=== PATIENT | male | born 1955 | race Asian ===

== ENCOUNTER 2016-12-07 19:48 | Observation (INO) | payer SELFPAY ==
[~2016-12-07] VITALS: Ht 162.6 cm; Wt 57.0 kg
[2016-12-08] MEDS ORDERED: SOD CHLORIDE 0.9% 500 ML IV STA (00:46)
[2016-12-08 01:07] LABS: ADD SCAN DIFF NO
[2016-12-08 01:09] LABS: ABNORMAL IP MESSAGE 1; HEMATOCRIT 19.9 % (42.0-52.0); MEAN CORPUSCULAR HEMOGLOBIN 15.4 pg (29.0-33.0); MEAN CORPUSCULAR HGB CONC 26.6 g/dl (32.0-37.0); MEAN CORPUSCULAR VOLUME 57.8 fl (82.0-101.0); PLATELET COUNT 308 10^3/UL (140-415); RED BLOOD COUNT 3.44 10^6/ul (4.70-6.10); RED CELL DISTRIBUTION WIDTH 22.9 % (11.5-14.5)
--- NOTE | 2016-12-08 01:20 | RADRPT ---
PROCEDURE: XR Chest. CLINICAL INDICATION: Possible Upper GI Bleed TECHNIQUE: Single frontal view of the chest was obtained. COMPARISON: 08/07/2014 FINDINGS: The cardiomediastinal silhouette is normal size. Pulmonary vasculature is within normal limits. Th e lungs are clear. No signs of pleural fluid or pneumothorax are seen. There is mild aortic calcification. The osseous structures and soft tissues are unremarkable. IMPRESSION: No evidence for active cardiopulmonary disease . Mild aortic calcification. RPTAT: HBST .Cash Jain MD, MD Date Time Electronically viewed and signed by .Cash Jain MD, MD on 12/08/2016 01:19 .T/
[2016-12-08 01:22] LABS: CHLORIDE 99 mmol/L (97-110)
[2016-12-08 01:23] LABS: ALBUMIN 3.6 g/dl (3.3-4.9); SODIUM 138 mmol/L (135-144)
[2016-12-08 01:24] LABS: POTASSIUM 3.3 mmol/L (3.5-5.1)
[2016-12-08 01:26] LABS: ALANINE AMINOTRANSFERASE 41 IU/L (13-69); ALBUMIN/GLOBULIN RATIO 0.92; ALKALINE PHOSPHATASE 86 IU/L (42-121); ANION GAP 13 (8-16); ASPARTATE AMINO TRANSFERASE 45 IU/L (15-46); BILIRUBIN,INDIRECT 0.3 mg/dl (0-1.1); BILIRUBIN,TOTAL 0.3 mg/dl (0.2-1.3); BLOOD UREA NITROGEN 15 mg/dl (7-20); CARBON DIOXIDE 29 mmol/L (21-31); CREATININE 0.72 mg/dl (0.61-1.24); GLUCOSE 86 mg/dl (70-220); TOTAL PROTEIN 7.5 g/dl (6.1-8.1)
[2016-12-08 01:36] LABS: INR 1.22; PROTIME 15.5 Sec (12.2-14.2); PT RATIO 1.2
[2016-12-08 01:37] LABS: PARTIAL THROMBOPLASTIN TIME 30.8 Sec (25.0-35.0)
[2016-12-08 01:39] LABS: TROPONIN-I < 0.012 ng/ml (0.00-0.12)
[2016-12-08] MEDS ORDERED: SOD CHLORIDE 0.9% 250 ML IV ONE (02:04)
[2016-12-08 02:27] LABS: ANISOCYTOSIS 3+; EOSINOPHILS # 0.2 10^3/ul (0.0-0.5); LYMPHOCYTES # 2.2 10^3/ul (0.8-2.9); MONOCYTE # 0.4 10^3/ul (0.3-0.9); NEUTROPHIL # 1.2 10^3/ul (1.6-7.5); POIKILOCYTOSIS 2+
[2016-12-08 02:28] LABS: HYPOCHROMASIA 3+; MICROCYTOSIS 1+; TEAR DROP CELLS 1+
[2016-12-08 02:29] LABS: BURR CELLS 1+; OVALOCYTES 2+; STOMATOCYTES 1+
[2016-12-08 02:30] LABS: ACANTHOCYTES FEW; PLATELET ESTIMATE PLT APPEAR ADEQUATE
[2016-12-08] MEDS ORDERED: ONDANSETRON 4 MG INJ IV PRN ×2 (03:00)
[2016-12-08] MEDS ORDERED: ACETAMINOPHEN 325 MG TAB PO PRN ×2 (03:00)
--- NOTE | 2016-12-08 04:24 | ERA ---
ER Documentation Chief Complaint Date/Time DATE: 12/08/16 TIME: 04:16 Chief Complaint Low hgb HPI 61-year-old male with a history of hypertension sent by his primary care physician for a low hemoglobin on blood work. Patient states that he has had increasing fatigue, dizziness, with near syncopal episodes for the past several months that has been getting worse. He denies any associated chest pain but has had palpitations. He denies any hematemesis, nausea, vomiting, hematochezia , or melena. He denies any active bleeding. He has never had a blood transfusion in the past and has never been diagnosed with anemia. ROS All systems reviewed and are negative except as per history of present illness. Medications Home Meds Unable to Obtain Active Prescriptions or Reported Meds Allergies Allergies: Coded Allergies: No Known Allergy (Unverified , 08/07/14) PMhx/Soc History of Surgery: No Anesthesia Reaction: No Hx Neurological Disorder: No Hx Respiratory Disorders: No Hx Cardiac Disorders: Yes (HTN) Hx Psychiatric Problems: No Hx Miscellaneous Medical Probl: No Hx Alcohol Use: Yes (1-2 BEERS/DAY) Hx Substance Use: No Hx Tobacco Use: Yes Smoking Status: Current every day smoker FmHx Family History: No diabetes Physical Exam Vitals Vital Signs Date Time Temp Pulse Resp B/P Pulse Ox O2 Delivery O2 Flow Rate FiO2 12/08/16 04:52 96.5 66 16 153/86 100 Nasal Cannula 2.0 12/08/16 03:10 96.2 80 16 155/89 100 Nasal Cannula 3.0 12/08/16 01:56 67 18 156/94 99 12/08/16 00:39 69 18 161/100 100 Nasal Cannula 3.0 12/07/16 20:45 97.2 63 20 137/67 100 Physical Exam Const: No distress, nontoxic, very pale Head: Atraumatic Eyes: Pale conjunctiva, no scleral icterus ENT: Normal External Ears, Nose and Mouth. No oropharyngeal bleeding Neck: Full range of motion.No meningismus. Resp: Clear to auscultation bilaterally Cardio: Regular rate and occasionally irregular rhythm, no murmurs Abd: Soft, non tender, non distended. Normal bowel sounds Skin: No petechiae or rashes, no jaundice Rectal: Normal tone, No mass, Positive control Stool: Brown Guaiac: Negative Back: No midline or flank tenderness Ext: No cyanosis, or edema Neur: Awake and alert Psych: Normal Mood and Affect Result Diagram: 12/08/16 0045 12/08/16 0045 Results 24 hrs Laboratory Tests Test 12/08/16 00:45 White Blood Count 4.010^3/ul Red Blood Count 3.4410^6/ul Hemoglobin 5.3g/dl Hematocrit 19.9% Mean Corpuscular Volume 57.8fl Mean Corpuscular Hemoglobin 15.4pg Mean Corpuscular Hemoglobin Concent 26.6g/dl Red Cell Distribution Width 22.9% Platelet Count 41172^3/UL Mean Platelet Volume fl Neutrophils % 30.0% Lymphocytes % 56.0% Monocytes % 9.0% Eosinophils % 4.0% Basophils % 1.0% Neutrophils # 1.210^3/ul Lymphocytes # 2.210^3/ul Monocytes # 0.410^3/ul Eosinophils # 0.210^3/ul Basophils # 0.010^3/ul Differential Comment Platelet Estimate PLT APPEAR ADEQUATE Large Platelets FEW Hypochromasia 3+ Poikilocytosis 2+ Anisocytosis 3+ Microcytosis 1+ Macrocytosis 1+ Tear Drop Cells 1+ Ovalocytes 2+ Stomatocytes 1+ Acanthocytes FEW Prothrombin Time 15.5Sec Prothrombin Time Ratio 1.2 INR International Normalized Ratio 1.22 Activated Partial Thromboplast Time 30.8Sec Sodium Level 138mmol/L Potassium Level 3.3mmol/L Chloride Level 99mmol/L Carbon Dioxide Level 29mmol/L Anion Gap 13 Blood Urea Nitrogen 15mg/dl Creatinine 0.72mg/dl Glucose Level 86mg/dl Calcium Level 8.0mg/dl Iron Level 20ug/dl Total Iron Binding Capacity Pending Percent Iron Saturation Pending Total Bilirubin 0.3mg/dl Direct Bilirubin 0.00mg/dl Indirect Bilirubin 0.3mg/dl Aspartate Amino Transf (AST/SGOT) 45IU/L Alanine Aminotransferase (ALT/SGPT) 41IU/L Alkaline Phosphatase 86IU/L Troponin I < 0.012ng/ml Total Protein 7.5g/dl Albumin 3.6g/dl Globulin 3.90g/dl Albumin/Globulin Ratio 0.92 Lipase 313U/L Current Medications Medications (Trade) Dose Ordered Sig/Maria Teresa Route PRN Reason Start Time Stop Time Status Last Admin Dose Admin Sodium Chloride 500 ml @ 500 mls/hr Q1H STAT IV 12/08/16 00:46 12/08/16 01:45 DC 12/08/16 01:06 Sodium Chloride (NS) 250 ml @ 0 mls/hr Q0M ONCE IV 12/08/16 02:04 12/08/16 02:05 DC 12/08/16 02:04 Ondansetron HCl (Zofran Inj) 4 mg BRIDGE ORDER PRN IV NAUSEA AND/OR VOMITING 12/08/16 03:00 12/09/16 02:59 Acetaminophen (Tylenol Tab) 650 mg ER BRIDGE PRN PO MILD PAIN/FEVER 12/08/16 03:00 12/09/16 02:59 Ondansetron HCl (Zofran Inj) 4 mg BRIDGE ORDER PRN IV NAUSEA AND/OR VOMITING 12/08/16 03:00 12/09/16 02:59 Acetaminophen (Tylenol Tab) 650 mg ER BRIDGE PRN PO MILD PAIN/FEVER 12/08/16 03:00 12/09/16 02:59 IV Flush (NS 3 ml) 3 ml PER PROTOCOL IV 12/08/16 05:00 Metoclopramide HCl (Reglan) 10 mg Q6H PRN IV NAUSEA AND/OR VOMITING 12/08/16 05:00 Morphine Sulfate (morphine) 2 mg Q4H PRN IV SEVERE PAIN LEVEL 7-10 12/08/16 05:00 Famotidine (Pepcid Iv) 20 mg Q12 IV 12/08/16 09:00 Procedures/MDM EKG: Rate/Rhythm: Normal Sinus Rhythm at 71 bpm with PAC QRS, ST, T-waves: QTC 493, LVH, no changes consistent w/ acute ischemia Impression: No evidence of ischemia or arrhythmia Labs show a hemoglobin of 5.3, mild hypokalemia Chest x-ray shows no acute disease Patient is presenting with symptomatic severe anemia. Vitals are stable and he is afebrile. There is no evidence of cardiac ischemia. There is no evidence of acute GI bleed or other acute bleeding. Patient was consented for blood transfusion. 2 units of packed red blood cells were ordered and transfusion started. The patient will be admitted for further workup and management of his anemia. Critical Care Time: 35 minutes Treatments/Evaluations: Close monitoring and treatment of unstable vital signs, cardiorespiratory, and neurologic status, while maintaining tight balance of fluid, respiratory, and cardiac interventions. This time includes discussing the case with the patient and the patients family. This time does not include all procedures stated elsewhere in this record. This time also includes reviewing old records, labs and radiological studies. This time includes examining and re-examining the patient. Additionally, this time also includes arranging care with admitting and consulting physicians. Accepting Care Team: Current data and ongoing care discussed. Time: Time of admission Primary Provider: Gavin Consulting: none Outstanding Data: none Departure Diagnosis: Primary Impression: Severe anemia Additional Impression: Hypokalemia Condition: Serious BRODERICK GUIDRY MD Dec 08, 2016 04:24
--- NOTE | 2016-12-08 04:39 | HP ---
Date/Time of Note Date/Time of Note DATE: 12/08/16 TIME: 04:39 Assessment/Plan VTE Prophylaxis VTE Prophylaxis Intervention: contraindicated (Bleeding Risk. Very anemic. No source.) Lines/Catheters IV Catheter Type (from Nrs): Saline Lock Assessment/Plan Assessment/Plan 1) Anemia - microcytic, hypochromic, no obvious source. Consider dietary deficiency, slow GI loss, Hematopoietic Disorder? (patient has never had a Colonoscopy) - Admit to Med-Surg - Transfuse 2 uPRBCs as ordered by the ER physician - NPO for now pending possible procedure. - Iron Studies, Reticulocyte Count - CONSULT: GI - Dr. Enrique HPI/ROS Admit Date/Time Admit Date/Time 12/08/16 0250 Hx of Present Illness Chief Complaint Low hgb HPI 61-year-old male with a history of hypertension sent by his primary care physician for a low hemoglobin on blood work. Patient states that he has had increasing fatigue, dizziness, with near syncopal episodes for the past several months that has been getting worse. He denies any associated chest pain but has had palpitations. He denies any hematemesis, nausea, vomiting, hematochezia , or melena. He denies any active bleeding. He has never had a blood transfusion and has never been diagnosed with anemia. Right now, he indicates that he feels a bit better, but still feels a little short of breath. Patient has never had a Colonoscopy. ROS General: Admits: General Fatigue Denies: Fever, Chills, Poor Appetite, Abnormal Weight Loss, Generalized Body Aches Eyes: Admits: Denies: Blurry Vision, Double Vision, Yellow Eyes HENT: Admits: Denies: Sinus Pain/Pressure, Ear Pain/Pressure, Runny/Stuffy Nose, Sore Throat Cardiovascular: Admits: Denies: Chest Pain, Palpitations, Leg Swelling Pulmonary: Admits: Shortness of Breath Denies: Cough, Wheeze Gastrointestinal: Admits: Denies: Abdominal Pain, Nausea, Vomiting, Diarrhea, Blood in Stool, Black-Colored Stool Urogenital: Admits: Denies: Burning with Urination, Urinary Frequency, Blood in Urine Musculoskeletal: Admits: Denies: Joint Pain, Joint Swelling, Muscle Pain Neurological: Admits: Denies: Headache, Dizziness, Numbness, Tingling, Shooting Pains Integumentary: Admits: Denies: Rash, Itch Endocrine: Admits: Denies: Excessive Thirst, Excessive Hunger, Intolerant to Cold , Intolerant to Heat Hematologic: Admits Denies: Easy Bruising, Spontaneous Nose Bleeds, Bleeding Gums PMH/Family/Social Past Medical History Medical History: hypertension Family History Significant Family History: other (No Diabetes) Social History Alcohol Use: other (1 to 2 Beers per day) Smoking Status: Current every day smoker Exam/Review of Systems Vital Signs Vitals Vital Signs Date Time Temp Pulse Resp B/P Pulse Ox O2 Delivery O2 Flow Rate FiO2 12/08/16 03:10 96.2 80 16 155/89 100 Nasal Cannula 3.0 Exam Exam General: Alert and Oriented, in no acute distress Eyes: Sclera White, Conjunctiva Pale, EOMI HENT: Normocephalic/Atraumatic, External Ears/Nose Normal, Moist Mucus Membranes Neck: Supple, Trachea Midline Cardiovascular: Normal Rate, Normal Rhythm with frequent extra beat felt easily through the chest wall while auscultating. (Patient indicates he can feel those stronger heart beats) Normal S1 and S2, No Murmur, No Extra Sounds Pulmonary: Clear to Auscultation Bilaterally, Normal Respiratory Effort, No Rales, Rhonchi or Wheezes Gastrointestinal: Normoactive Bowel Sounds, Soft, Non-Tender/Non-Distended, No Hepatosplenomegaly Appreciated, No Pulsatile Masses (Rectap done by ER Physician - Brown stool. Occult Blood: NEGATIVE) Urogenital: Deferred Musculoskeletal: Normal Muscle Bulk and Tone Neurological: CN II - XII Grossly Intact, Non-Focal, Speech Normal Integumentary: Pale, no bruising. Normal Moisture and Temperature, Good Turgor , No Jaundice, No Rash Lymphatic: No Cervical Lymphadenopathy Psychiatric: Appropriate Mood and Affect, Good Eye Contact Labs Result Diagram: 12/08/164412/08/1644 Medications Medications Home Meds Unable to Obtain Active Prescriptions or Reported Meds Current Medications Home Meds Unable to Obtain Active Prescriptions or Reported Meds Medications (Trade) Dose Ordered Sig/Maria Teresa Route PRN Reason Start Time Stop Time Status Last Admin Dose Admin Sodium Chloride 500 ml @ 500 mls/hr Q1H STAT IV 12/08/16 00:46 12/08/16 01:45 DC 12/08/16 01:06 Sodium Chloride (NS) 250 ml @ 0 mls/hr Q0M ONCE IV 12/08/16 02:04 12/08/16 02:05 DC 12/08/16 02:04 Ondansetron HCl (Zofran Inj) 4 mg BRIDGE ORDER PRN IV NAUSEA AND/OR VOMITING 12/08/16 03:00 12/09/16 02:59 Acetaminophen (Tylenol Tab) 650 mg ER BRIDGE PRN PO MILD PAIN/FEVER 12/08/16 03:00 12/09/16 02:59 Ondansetron HCl (Zofran Inj) 4 mg BRIDGE ORDER PRN IV NAUSEA AND/OR VOMITING 12/08/16 03:00 12/09/16 02:59 Acetaminophen (Tylenol Tab) 650 mg ER BRIDGE PRN PO MILD PAIN/FEVER 12/08/16 03:00 12/09/16 02:59 Procedures Procedures Laboratory Tests Test 12/08/16 00:45 White Blood Count 4.010^3/ul Red Blood Count 3.4410^6/ul Hemoglobin 5.3g/dl Hematocrit 19.9% Mean Corpuscular Volume 57.8fl Mean Corpuscular Hemoglobin 15.4pg Mean Corpuscular Hemoglobin Concent 26.6g/dl Red Cell Distribution Width 22.9% Platelet Count 62984^3/UL Mean Platelet Volume fl Neutrophils % 30.0% Lymphocytes % 56.0% Monocytes % 9.0% Eosinophils % 4.0% Basophils % 1.0% Neutrophils # 1.210^3/ul Lymphocytes # 2.210^3/ul Monocytes # 0.410^3/ul Eosinophils # 0.210^3/ul Basophils # 0.010^3/ul Differential Comment Platelet Estimate PLT APPEAR ADEQUATE Large Platelets FEW Hypochromasia 3+ Poikilocytosis 2+ Anisocytosis 3+ Microcytosis 1+ Macrocytosis 1+ Tear Drop Cells 1+ Ovalocytes 2+ Stomatocytes 1+ Acanthocytes FEW Prothrombin Time 15.5Sec Prothrombin Time Ratio 1.2 INR International Normalized Ratio 1.22 Activated Partial Thromboplast Time 30.8Sec Sodium Level 138mmol/L Potassium Level 3.3mmol/L Chloride Level 99mmol/L Carbon Dioxide Level 29mmol/L Anion Gap 13 Blood Urea Nitrogen 15mg/dl Creatinine 0.72mg/dl Glucose Level 86mg/dl Calcium Level 8.0mg/dl Total Bilirubin 0.3mg/dl Direct Bilirubin 0.00mg/dl Indirect Bilirubin 0.3mg/dl Aspartate Amino Transf (AST/SGOT) 45IU/L Alanine Aminotransferase (ALT/SGPT) 41IU/L Alkaline Phosphatase 86IU/L Troponin I < 0.012ng/ml Total Protein 7.5g/dl Albumin 3.6g/dl Globulin 3.90g/dl Albumin/Globulin Ratio 0.92 Lipase 313U/L Procedures/MDM EKG: Interpreted by ER Physician Rate/Rhythm: Normal Sinus Rhythm at 71 bpm with PAC QRS, ST, T-waves: QTC 493, LVH, no changes consistent w/ acute ischemia Impression: No evidence of ischemia or arrhythmia CARON AGUILAR DO Dec 08, 2016 04:39 Urine, Nocturia Musculoskeletal: Admits: Denies: Joint Pain, Joint Swelling, Muscle Pain Neurological: Admits: Denies: Headache, Dizziness, Numbness, Tingling, Shooting Pains Integumentary: Admits: Denies: Rash, Itch, Yellow Skin Endocrine: Admits: Denies: Excessive Thirst, Excessive Hunger, Intolerant to Cold , Intolerant to Heat Psychiatric: Admits: Denies: Anxiety, Depression PMH/Family/Social Social History Smoking Status: Current every day smoker Exam/Review of Systems Vital Signs Vitals Vital Signs Date Time Temp Pulse Resp B/P Pulse Ox O2 Delivery O2 Flow Rate FiO2 12/08/16 03:10 96.2 80 16 155/89 100 Nasal Cannula 3.0 Labs Result Diagram: 12/08/165 12/08/16 0045 CARON AGUILAR DO Dec 08, 2016 04:39
[2016-12-08] MEDS ORDERED: morphine 2 MG INJ IV PRN (05:00)
[2016-12-08] MEDS ORDERED: METOCLOPRAMIDE 10 MG INJ IV PRN (05:00)
[2016-12-08] MEDS ORDERED: NACL 0.9% 3 ML SYG IV SCH (05:00)
[2016-12-08 05:24] LABS: NUCLEATED RED BLOOD CELLS% 0.5 /100WBC (0.0-0.0)
[2016-12-08 05:31] LABS: IRON 20 ug/dl (35-150)
[2016-12-08 06:03] LABS: TOTAL IRON BINDING CAPACITY 465 ug/dl (241-421)
[2016-12-08 06:18] LABS: RETICULOCYTE COUNT % 1.2 % (0.5-1.5)
[2016-12-08 06:55] VITALS: PULSE 80; TEMP 97.8
[2016-12-08 07:30] VITALS: Ht 162.6 cm; Wt 57.0 kg
[2016-12-08 08:18] VITALS: BP 163/98; RESP 20
[2016-12-08] MEDS: FAMOTIDINE 20 MG INJ IV SCH ×2 (09:44→20:51)
--- NOTE | 2016-12-08 14:15 | CONS ---
Date/Time of Note Date/Time of Note DATE: 12/08/16 TIME: 14:09 Assessment/Plan Assessment/Plan Additional Assessment/Plan Acute anemia Evaluate GI bleed versus chronic iron deficiency vs other etiology Stool OB, if positive strongly recommend EGD Monitor H&H every 8 hours, transfuse 2 units for hemoglobin less than 7.5 Iron profile Monitor labs CT abdomen Continue PPI twice daily EGD if clinically indicated, pt advised of R/B/A to procedure and declines providing informed consent to proceed Hypertension Management per Primary Continue home medication Further recommendations depend on clinical course Patient seen in collaboration with Dr. Enrique Consultation Date/Type/Reason Admit Date/Time 12/08/16 0250 Hx of Present Illness Mr.Khek Walker is a 61-year-old male that presented to ED for further evaluation of weakness. Patient states he has been feeling very weak and tired for a few weeks. Patient denies fever, chills, nausea, vomiting, melena stools , bright red blood per rectum, sick contacts, travel outside the [place], previous episode, and chronic NSAID use. Patient states he has a past medical history for hypertension only. Patient declines endoscopic evaluation for anemia. Advised patient that endoscopy would help determine whether or not if he is actively bleeding and if there is a GI source for his anemia. Patient states he understands the risks but declines procedure. Patient does not want EGD and would prefer to start eating. Past Medical History Medical History: hypertension Social History Alcohol Use: other (1 to 2 Beers per day) Smoking Status: Current every day smoker Exam/Review of Systems Vital Signs Vitals Vital Signs Date Time Temp Pulse Resp B/P Pulse Ox O2 Delivery O2 Flow Rate FiO2 12/08/16 08:18 98.4 69 20 163/98 100 12/08/16 06:55 Room Air 12/08/16 04:52 2.0 Intake and Output 12/07/16 12/07/16 12/08/16 15:00 23:00 07:00 Intake Total 700 ml Balance 700 ml Exam Constitutional: alert, oriented, well developed Psych: nl mood/affect Head: normocephalic Eyes: EOMI, nl conjunctiva, nl lids ENMT: nl external ears & nose, nl lips & teeth, nl nasal mucosa & septum Respiratory: clear to auscultation, normal air movement Cardiovascular: regular rate and rhythm Gastrointestinal: soft, non-tender Musculoskeletal: nl extremities to inspection Neurological: SCHEDULE SUPERVISOR II-XII intact Results Result Diagram: 12/08/165 12/08/1644 Results 24 hrs Laboratory Tests Test 12/08/16 00:45 White Blood Count 4.0 L Red Blood Count 3.44 L Hemoglobin 5.3 *L Hematocrit 19.9 L Mean Corpuscular Volume 57.8 L Mean Corpuscular Hemoglobin 15.4 L Mean Corpuscular Hemoglobin Concent 26.6 L Red Cell Distribution Width 22.9 H Platelet Count 308 Mean Platelet Volume Neutrophils % 30.0 L Lymphocytes % 56.0 H Monocytes % 9.0 Eosinophils % 4.0 Basophils % 1.0 Nucleated Red Blood Cells % 0.5 H Neutrophils # 1.2 L Lymphocytes # 2.2 Monocytes # 0.4 Eosinophils # 0.2 Basophils # 0.0 Nucleated Red Blood Cells # 0.0 Differential Comment Platelet Estimate PLT APPEAR ADEQUATE Large Platelets FEW Hypochromasia 3+ Poikilocytosis 2+ Anisocytosis 3+ Microcytosis 1+ Macrocytosis 1+ Tear Drop Cells 1+ Ovalocytes 2+ Stomatocytes 1+ Acanthocytes FEW Absolute Reticulocyte Count 0.041 Percent Reticulocyte Count 1.2 Prothrombin Time 15.5 H Prothrombin Time Ratio 1.2 INR International Normalized Ratio 1.22 Activated Partial Thromboplast Time 30.8 Sodium Level 138 Potassium Level 3.3 L Chloride Level 99 Carbon Dioxide Level 29 Anion Gap 13 Blood Urea Nitrogen 15 Creatinine 0.72 Glucose Level 86 Calcium Level 8.0 L Iron Level 20 L Total Iron Binding Capacity 465 H Percent Iron Saturation 4 L Total Bilirubin 0.3 Direct Bilirubin 0.00 Indirect Bilirubin 0.3 Aspartate Amino Transf (AST/SGOT) 45 Alanine Aminotransferase (ALT/SGPT) 41 Alkaline Phosphatase 86 Troponin I < 0.012 Total Protein 7.5 Albumin 3.6 Globulin 3.90 H Albumin/Globulin Ratio 0.92 Lipase 313 H Medications Medications Current Medications Metoclopramide HCl (Reglan) 10 mg Q6H PRN IV NAUSEA AND/OR VOMITING; Start at 05:00 Morphine Sulfate (morphine) 2 mg Q4H PRN IV SEVERE PAIN LEVEL 7-10; Start 12/08 at 05:00 Famotidine (Pepcid Iv) 20 mg Q12 IV Last administered on 12/08/16t 09:44; Admin Dose 20 MG; Start 12/08/16 at 09:00 Influenza Virus Vaccine (Fluzone) 0.5 ml ONCE ONCE IM* ; Start 12/08/16 at 17:00 ; Stop 12/08/16 at 17:01 DERIAN ONEIL Dec 08, 2016 14:15
[2016-12-08 14:45] LABS: HEMATOCRIT 27.5 % (42.0-52.0); HEMOGLOBIN 7.9 g/dl (14.0-18.0)
[2016-12-08] MEDS ORDERED: INFLUENZA VIRUS VACCINE 0.5 ML SYG IM* ONE (17:00)
[2016-12-08 19:29] VITALS: BP 171/79; RESP 18
[2016-12-09 05:29] LABS: ADD SCAN DIFF NO
[2016-12-09 05:46] LABS: ABNORMAL IP MESSAGE 1; BASOPHILS % 0.5 % (0.0-2.0); EOSINOPHILS # 0.1 10^3/ul (0.0-0.5); EOSINOPHILS % 2.8 % (0.0-7.0); HEMATOCRIT 27.3 % (42.0-52.0); HEMOGLOBIN 7.9 g/dl (14.0-18.0); LYMPHOCYTES # 1.7 10^3/ul (0.8-2.9); LYMPHOCYTES % 37.9 % (15.0-51.0); MEAN CORPUSCULAR HEMOGLOBIN 18.2 pg (29.0-33.0); MEAN CORPUSCULAR HGB CONC 28.9 g/dl (32.0-37.0); MEAN CORPUSCULAR VOLUME 62.8 fl (82.0-101.0); MONOCYTE # 0.3 10^3/ul (0.3-0.9); MONOCYTES % 7.6 % (0.0-11.0); NEUTROPHIL # 2.2 10^3/ul (1.6-7.5); PLATELET COUNT 264 10^3/UL (140-415); WHITE BLOOD COUNT 4.4 10^3/ul (4.8-10.8)
[2016-12-09 06:10] LABS: CREATININE 0.8 mg/dl (0.61-1.24)
[2016-12-09 06:11] LABS: CALCIUM 8.2 mg/dl (8.4-10.2)
[2016-12-09 06:18] LABS: RED BLOOD COUNT 4.35 10^6/ul (4.70-6.10); RED CELL DISTRIBUTION WIDTH 29.4 % (11.5-14.5)
[2016-12-09 06:38] LABS: POTASSIUM 2.9 mmol/L (3.5-5.1)
[2016-12-09 07:00] VITALS: BP 141/78; RESP 20
[2016-12-09] MEDS: FAMOTIDINE 20 MG INJ IV SCH ×2 (09:02→21:32)
[2016-12-09 10:08] LABS: SPHEROCYTES 1+; TARGET CELLS 1+
--- NOTE | 2016-12-09 10:35 | CONS ---
Date/Time of Note Date/Time of Note DATE: 12/09/16 TIME: 10:32 Assessment/Plan Assessment/Plan Chief Complaint/Hosp Course Mr.Khek Walker is a 61-year-old male that presented to ED for further evaluation of weakness. Patient states he has been feeling very weak and tired for a few weeks. Patient denies fever, chills, nausea, vomiting, melena stools , bright red blood per rectum, sick contacts, travel outside the [place], previous episode, and chronic NSAID use. Patient states he has a past medical history for hypertension only. Patient declines endoscopic evaluation for anemia. Advised patient that endoscopy would help determine whether or not if he is actively bleeding and if there is a GI source for his anemia. Patient states he understands the risks but declines procedure. Patient does not want EGD and would prefer to start eating. Problems: Additional Assessment/Plan Acute anemia Evaluate GI bleed versus chronic iron deficiency vs other etiology Stool OB, if positive strongly recommend EGD Monitor H&H every 8 hours, transfuse 2 units for hemoglobin less than 7.5 Iron profile Monitor labs Continue PPI twice daily EGD if clinically indicated, pt advised of R/B/A to procedure and declines providing informed consent to proceed. Pt understands risks and continues to refuse procedure. GI sign off Hypertension Management per Primary Continue home medication Further recommendations depend on clinical course Patient seen in collaboration with Dr. Enrique Consultation Date/Type/Reason Admit Date/Time Dec 08, 2016 at 02:51 Initial Consult Date Reason for Consultation Anemia 24 HR Interval Summary Free Text/Dictation Hemoglobin stable Patient continues to refuse EGD GI sign off Exam/Review of Systems Vital Signs Vitals Vital Signs Date Time Temp Pulse Resp B/P Pulse Ox O2 Delivery O2 Flow Rate FiO2 12/09/16 07:00 98.0 63 20 141/78 98 12/08/16 06:55 Room Air 12/08/16 04:52 2.0 Intake and Output 12/08/16 12/08/16 12/09/16 15:00 23:00 07:00 Intake Total 1780 ml 400 ml Balance 1780 ml 400 ml Exam Constitutional: alert, oriented, well developed Psych: nl mood/affect Head: normocephalic Eyes: EOMI, nl conjunctiva, nl lids ENMT: nl external ears & nose, nl lips & teeth, nl nasal mucosa & septum Respiratory: clear to auscultation, normal air movement Cardiovascular: regular rate and rhythm Gastrointestinal: soft, non-tender Musculoskeletal: nl extremities to inspection Neurological: FINANCE ADMINISTRATOR II-XII intact Results Result Diagram: 12/09/16 0500 12/09/16 0500 Results 24 hrs Laboratory Tests Test 12/08/16 14:25 12/09/16 05:00 Hemoglobin 7.9 #L 7.9 L Hematocrit 27.5 #L 27.3 L White Blood Count 4.4 L Red Blood Count 4.35 #L Mean Corpuscular Volume 62.8 L Mean Corpuscular Hemoglobin 18.2 L Mean Corpuscular Hemoglobin Concent 28.9 L Red Cell Distribution Width 29.4 #H Platelet Count 264 Mean Platelet Volume Neutrophils % 51.0 Lymphocytes % 37.9 Monocytes % 7.6 Eosinophils % 2.8 Basophils % 0.5 Nucleated Red Blood Cells % 0.0 Neutrophils # 2.2 Lymphocytes # 1.7 Monocytes # 0.3 Eosinophils # 0.1 Basophils # 0.0 Nucleated Red Blood Cells # 0.0 Spherocytes 1+ Target Cells 1+ Sodium Level 140 Potassium Level 2.9 *L Chloride Level 102 Carbon Dioxide Level 29 Anion Gap 12 Blood Urea Nitrogen 8 Creatinine 0.80 Glucose Level 92 Calcium Level 8.2 L Medications Medications Current Medications Metoclopramide HCl (Reglan) 10 mg Q6H PRN IV NAUSEA AND/OR VOMITING; Start at 05:00 Morphine Sulfate (morphine) 2 mg Q4H PRN IV SEVERE PAIN LEVEL 7-10; Start 12/08 at 05:00 Famotidine (Pepcid Iv) 20 mg Q12 IV Last administered on 12/09/16 09:02; Admin Dose 20 MG; Start 12/08/16 at 09:00 DERIAN ONEIL Dec 09, 2016 10:35
[2016-12-09 10:58] LABS: IRON 25 ug/dl (35-150)
[2016-12-09 11:07] LABS: TOTAL IRON BINDING CAPACITY 459 ug/dl (241-421)
[2016-12-09] MEDS ORDERED: POTASSIUM CHLORIDE (SR) 20 MEQ TAB PO ONE (12:00)
[2016-12-09] MEDS: SOD FERRIC GLUC COMPLX 125 MG in SOD CHLORIDE 0.9% 100 ML IVPB SCH (13:34)
[2016-12-09] MEDS ORDERED: POTASSIUM CHLORIDE 250 ML IVPB ONE (14:00)
--- NOTE | 2016-12-09 16:39 | PN ---
Date/Time of Note Date/Time of Note DATE: 12/09/16 TIME: 16:33 Assessment/Plan VTE Prophylaxis VTE Prophylaxis Intervention: SCD's VTE Contraindication Reason: bleeding Lines/Catheters IV Catheter Type (from Nrsg): Saline Lock Assessment/Plan Assessment/Plan 1. Severe Iron deficiency anemia likely 2/2 occult GI loss Unable to fully evaluate cause as patient has refused endoscopy despite counselling on benefits including the finding / managing of potentially life threatening diseases. Plan to optimize patient with another unit of blood, then discharge. Start iron replacement therapy 2. Hypokalemia: replace 3. HTN: commence antihypertensives 4. Elevated lipase : asymptomatic, will trend. Subjective 24 Hr Interval Summary Free Text/Dictation * Patient seen and examined. * feels much better * Continues to refuse endoscopy Exam/Review of Systems Vital Signs Vitals Vital Signs Date Time Temp Pulse Resp B/P Pulse Ox O2 Delivery O2 Flow Rate FiO2 12/09/16 07:00 98.0 63 20 141/78 98 12/08/16 06:55 Room Air 12/08/16 04:52 2.0 Intake and Output 12/08/16 12/08/16 12/09/16 14:59 22:59 06:59 Intake Total 1780 ml 400 ml Balance 1780 ml 400 ml Exam Constitutional: alert, oriented, No distress Head: atraumatic, normocephalic Eyes: PERRL ENMT: mucosa pink and moist Neck: supple Respiratory: clear to auscultation, normal air movement Cardiovascular: regular rate and rhythm, No bruits Gastrointestinal: bowel sounds, non-tender, soft Extremities: No edema Neurological: nl mental status, nl speech, No confused Results Result Diagram: 12/09/16 0500 12/09/16 0500 Results 24 hrs Laboratory Tests Test 12/09/16 05:00 White Blood Count 4.4 L Red Blood Count 4.35 #L Hemoglobin 7.9 L Hematocrit 27.3 L Mean Corpuscular Volume 62.8 L Mean Corpuscular Hemoglobin 18.2 L Mean Corpuscular Hemoglobin Concent 28.9 L Red Cell Distribution Width 29.4 #H Platelet Count 264 Mean Platelet Volume Neutrophils % 51.0 Lymphocytes % 37.9 Monocytes % 7.6 Eosinophils % 2.8 Basophils % 0.5 Nucleated Red Blood Cells % 0.0 Neutrophils # 2.2 Lymphocytes # 1.7 Monocytes # 0.3 Eosinophils # 0.1 Basophils # 0.0 Nucleated Red Blood Cells # 0.0 Spherocytes 1+ Target Cells 1+ Sodium Level 140 Potassium Level 2.9 *L Chloride Level 102 Carbon Dioxide Level 29 Anion Gap 12 Blood Urea Nitrogen 8 Creatinine 0.80 Glucose Level 92 Calcium Level 8.2 L Iron Level 25 L Total Iron Binding Capacity 459 H Percent Iron Saturation 5 L Medications Medications Current Medications Metoclopramide HCl (Reglan) 10 mg Q6H PRN IV NAUSEA AND/OR VOMITING; Start at 05:00 Morphine Sulfate (morphine) 2 mg Q4H PRN IV SEVERE PAIN LEVEL 7-10; Start 12/08 at 05:00 Famotidine 20 mg 20 mg Q12 IV Last administered on 12/09/16 09:02; Admin Dose 20 MG; Start 12/08/16 at 09:00 Potassium Chloride 250 ml @ 62.5 mls/hr ONCE ONCE IVPB Last administered on 14:42; Admin Dose 62.5 MLS/HR; Start 12/09/16 at 14:00; Stop 12/09/16 at 17:59 Ferric Sodium Gluconate Complex/ Sodium Chloride (Ferrlecit/NS) 110 ml @ 110 mls/hr Q24H IVPB Last administered on 12/09/16 13:34; Admin Dose 110 MLS/HR; Start 12/09/16 at 14:00; Stop 12/13/16 at 14:59 CAIT TOPETE Dec 09, 2016 16:39
[2016-12-09] MEDS ORDERED: FUROSEMIDE 20 MG INJ IV ONE (17:00)
[2016-12-09] MEDS: HYDROCHLOROTHIAZIDE 25 MG TAB PO SCH (17:55)
[2016-12-09] MEDS: LISINOPRIL 10 MG TAB PO SCH (17:55)
[2016-12-09 19:32] VITALS: BP 150/88; RESP 16
[2016-12-10] MEDS: HYDROCHLOROTHIAZIDE 25 MG TAB PO SCH (06:30)
[2016-12-10 07:55] VITALS: BP 125/74; RESP 18
[2016-12-10] MEDS: LISINOPRIL 10 MG TAB PO SCH (08:52)
[2016-12-10] MEDS: FAMOTIDINE 20 MG INJ IV SCH (08:53)
[2016-12-10 08:55] LABS: HEMOGLOBIN 5.3 g/dl (14.0-18.0)
[2016-12-10 10:58] LABS: ADD SCAN DIFF NO
[2016-12-10 11:09] LABS: POTASSIUM 3.1 mmol/L (3.5-5.1)
[2016-12-10 11:12] LABS: CALCIUM 9.2 mg/dl (8.4-10.2); CREATININE 0.96 mg/dl (0.61-1.24)
[2016-12-10 11:18] LABS: ABNORMAL IP MESSAGE 1; BASOPHILS % 0.5 % (0.0-2.0); EOSINOPHILS # 0.1 10^3/ul (0.0-0.5); EOSINOPHILS % 3.1 % (0.0-7.0); HEMOGLOBIN 10.6 g/dl (14.0-18.0); LYMPHOCYTES # 1.1 10^3/ul (0.8-2.9); LYMPHOCYTES % 28.5 % (15.0-51.0); MEAN CORPUSCULAR HEMOGLOBIN 19.5 pg (29.0-33.0); MEAN CORPUSCULAR HGB CONC 29.4 g/dl (32.0-37.0); MEAN CORPUSCULAR VOLUME 66.3 fl (82.0-101.0); MONOCYTE # 0.3 10^3/ul (0.3-0.9); MONOCYTES % 8.8 % (0.0-11.0); NEUTROPHIL # 2.3 10^3/ul (1.6-7.5); NEUTROPHILS % 58.6 % (39.0-77.0); NUCLEATED RED BLOOD CELLS% 0.5 /100WBC (0.0-0.0); PLATELET COUNT 360 10^3/UL (140-415); RED BLOOD COUNT 5.43 10^6/ul (4.70-6.10); RED CELL DISTRIBUTION WIDTH 31.3 % (11.5-14.5); WHITE BLOOD COUNT 3.9 10^3/ul (4.8-10.8)
[2016-12-10] MEDS ORDERED: POTASSIUM CHLORIDE (SR) 20 MEQ TAB PO STA (12:15)
--- NOTE | 2016-12-10 12:19 | PDOCDIS ---
Discharge Instructions DIAGNOSIS Discharge Diagnosis: Severe anemia , HTN CONDITION Patient Condition: Stable HOME CARE INSTRUCTIONS: Diet Instructions: Low Fat /Cholesterol ACTIVITY: Activity Restrictions: Slowly Increase Activity Rest between Activity FOLLOW UP/APPOINTMENTS Appointments Followup with your primary doctor within the next 1-2 weeks. If you don't have one please let someone know, we can give you resources that may help you pick one. You may also call your insurance company to assign one to you. Review your medication list with your nurse before leaving and if you need new prescriptions please let your nurse know. I may have made changes to your home medications or given you new prescriptions , please let your primary doctor know as well. Stay compliant with your medications and report any side effects to your PCP or pharmacist. Return to the ER if you have any concerns and cannot reach your doctors or call your insurance company, they usually have a nurse that can help you. Please think about doing an ENDOSCOPY, it might help figure out why your hemoglobin levels dropped. CAIT TOPETE Dec 10, 2016 12:19
[2016-12-10] MEDS ORDERED: LISI20TA11 PO (12:21)
[2016-12-10] MEDS ORDERED: ASC500 PO (12:21)
[2016-12-10] MEDS ORDERED: HYD25 PO (12:21)
[2016-12-10] MEDS ORDERED: FER325 PO (12:21)
[2016-12-10] MEDS ORDERED: DOCU-144 PO (12:21)
[2016-12-10] MEDS: SOD FERRIC GLUC COMPLX 125 MG in SOD CHLORIDE 0.9% 100 ML IVPB SCH (12:53)
[2016-12-10] MEDS ORDERED: POTASSIUM CHLORIDE 250 ML IVPB ONE (13:30)
--- NOTE | 2016-12-10 17:46 | DS ---
Date/Time of Note Date/Time of Note DATE: 12/10/16 TIME: 17:45 Discharge Summary Admission/Discharge Info Admit Date/Time Dec 08, 2016 at 02:51 Discharge Date/Time Patient Condition: Stable Home Meds Active Scripts Lisinopril* (Lisinopril*) 20 Mg Tablet, 20 MG PO DAILY, #30 TAB 2 Refills Prov:CAIT TOPETE. 12/10/16 Ascorbic Acid (Vitamin C) 500 Mg Tab, 500 MG PO DAILY for 30 Days, TAB 1 Refill Prov:CAIT TOPETE. 12/10/16 Docusate Sodium* (Colace*) 100 Mg Capsule, 100 MG PO BID, #60 CAP 1 Refill Prov:CAIT TOPETE. 12/10/16 Ferrous Sulfate* (Ferrous Sulfate*) 325 Mg Tabec, 325 MG PO TID for 30 Days, TAB 1 Refill Prov:CAIT TOPETE. 12/10/16 Hydrochlorothiazide* (Hydrochlorothiazide*) 25 Mg Tab, 25 MG PO DAILY@06 for 30 Days, TAB 2 Refills Prov:CAIT TOPETE. 12/10/16 Pending Labs Laboratory Tests Test 12/10/16 10:23 White Blood Count 3.910^3/ul (4.8-10.8) Red Blood Count 5.4310^6/ul (4.70-6.10) Hemoglobin 10.6g/dl (14.0-18.0) Hematocrit 36.0% (42.0-52.0) Mean Corpuscular Volume 66.3fl (82.0-101.0) Mean Corpuscular Hemoglobin 19.5pg (29.0-33.0) Mean Corpuscular Hemoglobin Concent 29.4g/dl (32.0-37.0) Red Cell Distribution Width 31.3% (11.5-14.5) Platelet Count 75943^3/UL (140-415) Mean Platelet Volume fl (7.4-10.4) Neutrophils % 58.6% (39.0-77.0) Lymphocytes % 28.5% (15.0-51.0) Monocytes % 8.8% (0.0-11.0) Eosinophils % 3.1% (0.0-7.0) Basophils % 0.5% (0.0-2.0) Nucleated Red Blood Cells % 0.5/100WBC (0.0-0.0) Neutrophils # 2.310^3/ul (1.6-7.5) Lymphocytes # 1.110^3/ul (0.8-2.9) Monocytes # 0.310^3/ul (0.3-0.9) Eosinophils # 0.110^3/ul (0.0-0.5) Basophils # 0.010^3/ul (0.0-0.1) Nucleated Red Blood Cells # 0.010^3/ul (0.0-0.0) Sodium Level 135mmol/L (135-144) Potassium Level 3.1mmol/L (3.5-5.1) Chloride Level 96mmol/L (97-110) Carbon Dioxide Level 29mmol/L (21-31) Anion Gap 13 (8-16) Blood Urea Nitrogen 12mg/dl (7-20) Creatinine 0.96mg/dl (0.61-1.24) Glucose Level 96mg/dl (70-220) Calcium Level 9.2mg/dl (8.4-10.2) CAIT TOPETE Dec 10, 2016 17:46
--- NOTE | 2016-12-10 17:54 | EN ---
Date/Time of Note Date/Time of Note DATE: 12/10/16 TIME: 17:46 Event Note Medicine Medicine Event Note DISCHARGE SUMMARY Date of admission: 12/08/16 Date of discharge: 12/10/16 Admission complaint: Low hgb HISTORY OF PRESENTING COMPLAINT: 61-year-old male with a history of hypertension sent by his primary care physician for a low hemoglobin on blood work. Patient states that he has had increasing fatigue, dizziness, with near syncopal episodes for the past several months that has been getting worse. He denies any associated chest pain but has had palpitations. He denies any hematemesis, nausea, vomiting, hematochezia, or melena. He denies any active bleeding. He has never had a blood transfusion and has never been diagnosed with anemia. Right now, he indicates that he feels a bit better, but still feels a little short of breath. Patient has never had a Colonoscopy. Admission diagnosis: 1) Anemia - microcytic, hypochromic, no obvious source. Consider dietary deficiency, slow GI loss, Hematopoietic Disorder? (patient has never had a Colonoscopy) Consults : Nitin Enrique: GI Hospital course / Interventions: Full details are available in the chart for review. In summary, this 61yo M was admitted as above and was transfused a total of 3 units of PRBCs which improved his Hgb level to just over 10. He however refused endoscopy despite counselling on risks and benefits and requested to be discharged after optimization. he had no specific reason for refusing. Comorbidities were also aggressively managed as per Med records. He was started on antihypertensives and titrated for good control. Patient at this time has been evaluated and examined in detail and is assessed to be in stable condition and ready for discharge. Final diagnosis: 1. Severe Iron deficiency anemia likely 2/2 occult GI loss Unable to fully evaluate cause as patient has refused endoscopy despite counselling on benefits including the finding / managing of potentially life threatening diseases. 2. Hypokalemia: replace 3. HTN: controlled 4. Elevated lipase : asymptomatic Discharge Condition: Stable Discharge Diet: Low cholesterol / low fat Diet Discharge Activity: As tolerated Discharge Meds: * Lisinopril* (Lisinopril*) 20 Mg Tablet, 20 MG PO DAILY, #30 TAB 2 Refills * Ascorbic Acid (Vitamin C) 500 Mg Tab, 500 MG PO DAILY for 30 Days, TAB 1 Refill * Docusate Sodium* (Colace*) 100 Mg Capsule, 100 MG PO BID, #60 CAP 1 Refill * Ferrous Sulfate* (Ferrous Sulfate*) 325 Mg Tabec, 325 MG PO TID for 30 Days, TAB 1 Refill * Hydrochlorothiazide* (Hydrochlorothiazide*) 25 Mg Tab, 25 MG PO DAILY@06 for 30 Days, TAB 2 Refills Follow up plan: PMD in 1-2 weeks Outpt Endoscopy strongly recommended Time spent on final evaluation and assessment, discharge planning, counselling and coordination has been >40mins. CAIT TOPETE. Dec 10, 2016 17:53
== END 2016-12-10 19:15 | disposition home or self-care (01) ==
LOC: E/R 19:48 → INTOOBSV 12-08 02:51 → MS2 12-08 02:51
PROVIDERS: ADMIT Family Medicine; ATTEND Family Medicine
DX: D50.9 Iron deficiency anemia, unspecified (principal)
CPT/HCPCS: 36415; 36430; 71010; 80048; 80053; 82270; 83540; 83690; 84484; 85014; 85018; 85025; 85045; 85610; 85730; 86850; 86900; 86901; 86920; 90686; 93005; 96360; 96361; 96365; 96366; 96375; 96376; 99291; G0008; G0378; J1940; J2916; J3480; J7040; P9016